=== PATIENT | female | born 1985 | race Caucasian/White ===

== ENCOUNTER 2018-09-14 16:35 | Outpatient (CLI) | payer MEDICAID ==
--- NOTE | 2018-09-14 18:04 | Non Stress Test Report ---
Non Stress Test Datetime Report Generated by CPN: 09/14/2018 18:04 DEMOGRAPHIC EGA NST: 37.6 INDICATION Indication for Study: Ordered by Provider; Other Indication for Study (NST) Other: AMA VITAL SIGNS RESP - NST: 18 MONITORING Monitor Explained: Monitor Explained; Test Explained; Patient Verbalized Understanding Time on Monitor: 09/14/2018 16:48 Time off Monitor: 09/14/2018 17:30 NST Duration: 42 NST INTERVENTIONS NST Interventions: PO Hydration; Reposition Patient Physician Notified NST: P JOMES CNM REVIEWED STRIP BABY A: [id number] BABY A Movement : Present Contraction Frequency : IRREG FHR Baseline : 130 Accelerations : 15X15 Decelerations : None Variability : Moderate 6-25bpm NST Review: Meets Criteria for Reactive NST NST Review and Verified By : BURTON Ritchie NST Results: Reactive NST REPORT Report Trigger: Send Report
== END 2018-09-14 17:35 | disposition home or self-care (01) ==
LOC: LC 16:35
PROVIDERS: ATTEND Student in an Organized Health Care Education/Training Program
PROC: 4A1HXCZ Monitoring of Products of Conception, Cardiac Rate, External Approach (ICD-10-PCS; principal; 2018-09-14)
DX: O47.1 False labor at or after 37 completed weeks of gestation (principal); O09.523 Supervision of elderly multigravida, third trimester; Z3A.37 37 weeks gestation of pregnancy
CPT/HCPCS: 59025

== ENCOUNTER 2018-09-22 04:50 | Inpatient (IN) | payer MEDICAID ==
[2018-09-21 11:11] LABS: ABSOLUTE EOSINOPHILS # (AUTO) 0.1 10^3/uL (0.0-0.6); ABSOLUTE LYMPHOCYTES (AUTO) 2.4 10^3/uL (0.5-4.7); ABSOLUTE MONOCYTES (AUTO) 0.7 10^3/uL (0.1-1.4); ABSOLUTE NEUT (AUTO) 7.5 10^3/uL (1.7-8.2); BASOPHILS % (AUTO) 0.2 % (0-2); EOSINOPHILS % (AUTO) 0.9 % (0-6); HEMATOCRIT 30.6 % (36.0-47.0); HEMOGLOBIN 10.6 g/dL (12.0-15.5); LYMPHOCYTES % (AUTO) 22.5 % (13-45); MEAN CORPUSCULAR HEMOGLOBIN 31.9 pg (27.0-33.4); MEAN CORPUSCULAR HGB CONC 34.6 g/dL (32.0-36.0); MEAN CORPUSCULAR VOLUME 92 fl (80-97); MONOCYTES % (AUTO) 6.6 % (3-13); PLATELET COUNT 244 10^3/uL (150-450); RED BLOOD COUNT 3.31 10^6/uL (3.72-5.28); RED CELL DISTRIBUTION WIDTH 13.6 % (11.5-14.0); SEGMENTED NEUTROPHILS % (AUTO) 69.8 % (42-78); TOTAL CELLS COUNTED % (AUTO) 100 %; WHITE BLOOD COUNT 10.7 10^3/uL (4.0-10.5)
[2018-09-21 11:21] LABS: APPEARANCE,URINE CLEAR; BILIRUBIN,URINE NEGATIVE (NEGATIVE); COLOR,URINE YELLOW; GLUCOSE, URINE NEGATIVE (NEGATIVE); KETONES,URINE NEGATIVE (NEGATIVE); LEUKOCYTE ESTERASE,URINE NEGATIVE (NEGATIVE); NITRITE,URINE NEGATIVE (NEGATIVE); PROTEIN,URINE NEGATIVE (NEGATIVE); URINE SPECIFIC GRAVITY 1.009; UROBILINOGEN,URINE NEGATIVE mg/dL (<2.0)
[2018-09-21 12:01] LABS: URINE AMPHETAMINES SCREEN NEGATIVE; URINE BARBITURATES SCREEN NEGATIVE; URINE BENZODIAZEPINES SCREEN NEGATIVE; URINE COCAINE SCREEN NEGATIVE; URINE MARIJUANA (THC) SCREEN NEGATIVE; URINE METHADONE SCREEN NEGATIVE; URINE PHENCYCLIDINE SCREEN NEGATIVE
[2018-09-22] MEDS ORDERED: RINGERS SOLUTION,LACTATED 1,000 ML IV PRN ×2 (05:00→09:00)
[2018-09-22] MEDS ORDERED: LACTATED RINGERS 1000 ML IV PRN (05:00)
[2018-09-22] MEDS ORDERED: CEFAZOLIN SODIUM 2 GM in DEXTROSE 5%-WATER 100 ML IV PRN (05:00)
[2018-09-22] MEDS ORDERED: LIDOCAINE 0.5% INJ-PF (5 MG/ML) 50 ML SDV SUBCUT PRN (05:00)
[2018-09-22] MEDS ORDERED: MIDAZOLAM 2 MG/2 ML INJ ONE (07:18)
[2018-09-22] MEDS ORDERED: OXYTOCIN 10 UNIT/ML VIAL ONE (07:18)
[2018-09-22] MEDS ORDERED: FENTANYL CITRATE INJ/PF 100 MCG/2 ML AMPUL ONE ×2 (07:18→10:32)
[2018-09-22] MEDS ORDERED: PROPOFOL INJ 200 MG/20 ML VIAL IV ONE (07:18)
[2018-09-22] MEDS ORDERED: CITRIC ACID/SODIUM CITRATE ORAL SOLN 15 ML UDCUP ONE (07:18)
[2018-09-22] MEDS ORDERED: EPHEDRINE SULFATE INJ 50 MG/1 ML AMPULE ONE (07:19)
[2018-09-22] MEDS ORDERED: OXYTOCIN/NORMAL SALINE 40 UNIT/2,000 ML RTUINJ ONE (07:19)
[2018-09-22] MEDS ORDERED: ONDANSETRON HCL INJ/PF 4 MG/2 ML SDV IV PRN (08:25)
[2018-09-22] MEDS ORDERED: DIPHENHYDRAMINE HCL 50 MG/ML VIAL IV PRN (08:25)
[2018-09-22] MEDS ORDERED: MEPERIDINE HCL/PF INJ 25 MG/1 ML DISP.SYRIN IV PRN (08:25)
[2018-09-22] MEDS ORDERED: PROMETHAZINE HCL INJ 25 MG/1 ML VIAL IV PRN ×3 (08:25→09:00)
[2018-09-22] MEDS ORDERED: FENTANYL CITRATE INJ/PF 100 MCG/2 ML AMPUL IV PRN ×3 (08:25)
[2018-09-22] MEDS ORDERED: HYDROMORPHONE HCL INJ/PF 2 MG/ML AMPULE IV PRN (08:26)
[2018-09-22] MEDS ORDERED: MEASLES,MUMPS&RUBELLA VACC/PF 0.5 ML VIAL SUBCUT PRN (09:00)
[2018-09-22] MEDS ORDERED: OXYCODONE-ACETAMINOPHEN 5-325 MG TABLET PO PRN (09:00)
[2018-09-22] MEDS ORDERED: ACETAMINOPHEN 325 MG TABLET PO PRN (09:00)
[2018-09-22] MEDS ORDERED: SIMETHICONE 80 MG TAB.CHEW PO PRN (09:00)
[2018-09-22] MEDS ORDERED: OXYTOCIN/NORMAL SALINE 20 UNIT/1,000 ML RTUINJ IV PRN (09:00)
[2018-09-22] MEDS ORDERED: DIPH/PERTUSS(ACELL)/TETANUS VAC/PF 0.5 ML SYR (>=10YO) IM PRN (09:00)
--- NOTE | 2018-09-22 09:05 | PDOC DELIVERY SUMMARY ---
Delivery Summary - Maternal Hx : Hx # Term Pregnancies: 3 Hx Total # of Abortions (Sponateous & Elective): 2 LAILA: 09/29/18 Gestational Age: 39 weeks Ruptured Membranes: AROM Time of Rupture: 08:12 Fluids: Clear - Delivery Presentation: Vertex Heart Rate Monitoring: Done Pre-Operatively Support Person Present: Yes Location: OR : Scheduled, Repeat Placenta: Within Normal Limits Delivery of Placenta Date: 09/22/18 Delivery of Placenta Time: 08:14 - Medications Type of Anesthesia:: Spinal - Assess and Care Baby 1 Female Delivery of Infant Date: 09/22/18 Delivery of Infant Time: 08:13 at 1 minute: 9 at 5 minutes: 9 Preprinted Number On Band: [id number] Skin to Skin: Yes Skin to Skin (Mins): 5 To Nursery At: 08:30 Mode of Transport: Bassinet Delivery Weight: 3,450 - Delivery Personnel Nursery RN: JAMISON PUENTE MD: JESUS CHACON
[2018-09-22] MEDS ORDERED: ACETAMINOPHEN 325 MG TABLET ONE (09:06)
--- NOTE | 2018-09-22 09:07 | Operative Report ---
Operative Report DATE OF SURGERY: 09/22/18 PREOPERATIVE DIAGNOSIS: Patient desires repeat and tubal ligation with Filshie clips POSTOPERATIVE DIAGNOSIS: Same OPERATION: Repeat via low transverse uterine incision and tubal ligation with Filshie clips SURGEON: JESUS CHACON ANESTHESIA: Spinal TISSUE REMOVED OR ALTERED: Placenta COMPLICATIONS: None ESTIMATED BLOOD LOSS: 400 cc INTRAOPERATIVE FINDINGS: Viable , normal uterus tubes and ovaries PROCEDURE: Patient was taken to the OR and placed in supine position after her spinal anesthesia. She is prepared and draped in sterile fashion. Krishnamurthy was placed for drainage of the bladder. Low transverse incision was made and carried down the level of the fascia. The fascial incision was made with knife and extended bilaterally with curved Ahumada scissors. The fascia was off the rectus muscles using sharp and blunt dissection. The rectus muscles are in the midline. The peritoneum was entered without incident. Bladder blade was placed in uterine segment was identified. A low transverse incision was made creating a bladder flap. Bladder blade was placed low transverse uterine incision was made with the knife and extended with fingertips. The baby was delivered with some fundal pressure. Mouth and nose were suctioned free. The cord is doubly clamped and cut. Baby is passed off to the facility engineer in attendance. The placenta was manually extracted with trailing membranes. The uterus was externalized wrapped in a moist lap sponge. Uterine contents wiped free. Uterus was closed with a running locking layer of 0 chromic suture using the second layer to imbricate the first completing a double layer closure of the uterus. The serosa was closed with a running 2-0 chromic stitch. Filshie clips were placed across the mid isthmic portion of each fallopian tube after anatomic identification. The pelvis was irrigated and suctioned free of fluid the uterus was replaced in the abdomen. The abdominal wall peritoneum was closed with running 2-0 chromic stitch. Fascia was closed with a running 0 Vicryl in 2 segments. Doug's layer was brought together with 0 plain gut stitch and the skin was closed with running subcuticular 4-0 undyed Vicryl stitch. The wound was dressed mother and baby did well.
[2018-09-22] MEDS ORDERED: OXYCODONE-ACETAMINOPHEN 5-325 MG TABLET ONE ×2 (10:24→10:25)
[2018-09-22] MEDS: OXYCODONE-ACETAMINOPHEN 5-325 MG TABLET PO PRN ×3 (10:25→19:07)
[2018-09-22] MEDS: PRENATAL VITAMIN W DHA CAPSULE PO SCH (11:34)
[2018-09-22] MEDS: DOCUSATE SODIUM 100 MG CAPSULE PO SCH ×2 (11:34→18:53)
[2018-09-22] MEDS: IBUPROFEN 800 MG TABLET PO SCH (11:42)
[2018-09-22] MEDS ORDERED: IBUPROFEN 800 MG TABLET PO SCH (12:00)
[2018-09-22] MEDS: KETOROLAC TROMETHAMINE INJ/PF 30 MG/1 ML SDV IV SCH ×2 (13:34→22:02)
[2018-09-22] MEDS ORDERED: KETOROLAC TROMETHAMINE 60 MG/2 ML SDV ONE (15:00)
[2018-09-22] MEDS ORDERED: PHENYLEPHRINE HCL INJ/PF 10 MG/1 ML SDV ONE (15:00)
[2018-09-22] MEDS ORDERED: ONDANSETRON HCL INJ/PF 4 MG/2 ML SDV ONE (15:00)
[2018-09-22] MEDS ORDERED: METOCLOPRAMIDE HCL INJ/PF 10 MG/2 ML SDV ONE (15:00)
[2018-09-23] MEDS: OXYCODONE-ACETAMINOPHEN 5-325 MG TABLET PO PRN ×5 (00:34→22:30)
[2018-09-23] MEDS ORDERED: IBUPROFEN 800 MG TABLET PO SCH (03:00)
[2018-09-23] MEDS: IBUPROFEN 800 MG TABLET PO SCH ×3 (05:18→18:09)
[2018-09-23 06:54] LABS: HEMATOCRIT 25.4 % (36.0-47.0); HEMOGLOBIN 8.7 g/dL (12.0-15.5); MEAN CORPUSCULAR HEMOGLOBIN 31.9 pg (27.0-33.4); MEAN CORPUSCULAR VOLUME 94 fl (80-97); PLATELET COUNT 181 10^3/uL (150-450); RED BLOOD COUNT 2.72 10^6/uL (3.72-5.28); RED CELL DISTRIBUTION WIDTH 13.8 % (11.5-14.0); WHITE BLOOD COUNT 11.4 10^3/uL (4.0-10.5)
[2018-09-23] MEDS: DOCUSATE SODIUM 100 MG CAPSULE PO SCH ×2 (09:54→18:08)
[2018-09-23] MEDS: PRENATAL VITAMIN W DHA CAPSULE PO SCH (09:54)
--- NOTE | 2018-09-23 10:47 | PDOC PROGRESS REPORT ---
Subjective-OB Progress Note for:: 09/23/18 - POD#1, s/p Rpt w/ BTL. doing well, no complaints, UOB, voiding, A+, rubella Immune, +tobacco use this Physical Exam (OB) Vital Signs: Temp Pulse Resp BP Pulse Ox 97.5 F 82 16 98/50 L 99 09/23/18 07:36 09/23/18 07:36 09/23/18 07:36 09/23/18 07:36 09/23/18 07:36 Intake & Output 09/22/18 09/23/18 09/24/18 06:59 06:59 06:59 Intake Total 3000 Output Total 1200 Balance 1800 Weight 76.566 kg - General General Appearance: Appears well, Alert In distress: None - PIH/Pre-Eclampsia Headache: Absent Epigastric Pain: No Visual Changes: No - Dressing Removed: No - opsite Incision: Dressing, Well Approximated Closure Type: Surgical Glue - Lochia Lochia Amount: Scant < 10 ml Lochia Color: Rubra/Red - Abdomen Description: Soft Hernia Present: No Fundal Description: Firm, Midline Fundal Height: u/u - u/2 - Respiratory Respiratory Status: No respiratory distress Breath sounds: Clear - Cardiovascular Heart Sounds: Normal auscultation - Abdominal Inspection: Normal Distension: No distension Tenderness: Nontender Abdominal Notes: +bowel sounds - Genitourinary Genitourinary Note: voiding - Extremities Upper extremity: Normal inspection Lower extremities: Normal inspection - Neurological Cognition: Normal Orientation: AAOx4 - Psychological Associated symptoms: Normal affect, Normal mood - Skin Skin Temperature: Warm Skin Moisture: Dry Objective-Diagnostic Laboratory: 09/23/18 06:46 09/23/18 06:46 WBC 11.4 H RBC 2.72 L Hgb 8.7 L Hct 25.4 L MCV 94 MCH 31.9 MCHC 34.0 RDW 13.8 Plt Count 181 Assessment and Plan(PN) - Assessment and Plan (1) Status post repeat low transverse section Is this a current diagnosis for this admission?: Yes (2) Tubal ligation status Is this a current diagnosis for this admission?: Yes - Time Spent with Patient Time with patient: Less than 15 minutes Medications reviewed and adjusted accordingly: Yes - Disposition Anticipated Discharge: Home Within: within 48 hours
[2018-09-23] MEDS ORDERED: MAG HYDROX/AL HYDROX/SIMETH SUSP 30 ML UDCUP ONE (12:26)
[2018-09-23] MEDS ORDERED: ONDANSETRON 4 MG TAB.RAPDIS PO PRN (13:12)
[2018-09-23] MEDS ORDERED: ONDANSETRON 4 MG TAB.RAPDIS ONE (13:13)
[2018-09-24] MEDS: IBUPROFEN 800 MG TABLET PO SCH ×3 (00:15→12:58)
[2018-09-24] MEDS: OXYCODONE-ACETAMINOPHEN 5-325 MG TABLET PO PRN ×2 (06:00→12:58)
--- NOTE | 2018-09-24 10:33 | PDOC DISCHARGE SUMMARY ---
Final Diagnosis Discharge Date: 09/24/18 - POD#2, doing well, no complaints, bottlefeeding, A+, Rubella Immune - Final Diagnosis (1) Status post repeat low transverse section Is this a current diagnosis for this admission?: Yes (2) Tubal ligation status Is this a current diagnosis for this admission?: Yes (3) Anemia, Is this a current diagnosis for this admission?: Yes (4) Normal course Is this a current diagnosis for this admission?: Yes Discharge Data - Discharge Medication Prescriptions: Ferrous Sulfate 325 mg PO DAILY #30 tablet. Ibuprofen [Motrin 800 mg Tablet] 800 mg PO Q6 #60 tablet Oxycodone HCl/Acetaminophen [Percocet 5-325 mg Tablet] 1 tab PO Q4HP PRN #30 tablet PRN Reason: Pain Scale Of 3 Home Medications: Vit,Calc76/Iron/Folic [Pnv 29-1 Tablet] 1 tab PO DAILY 09/21/18 Ranitidine HCl [Zantac] 1 tab PO DAILY 09/21/18 Ferrous Sulfate 325 mg PO DAILY #30 tablet. 09/24/18 Ibuprofen [Motrin 800 mg Tablet] 800 mg PO Q6 #60 tablet 09/24/18 Oxycodone HCl/Acetaminophen [Percocet 5-325 mg Tablet] 1 tab PO Q4HP PRN #30 tablet 09/24/18 Reason(s) for Admission: Ceasarean Section-Repeat, Tubal Ligation Procedures: NST, Ultrasound Intrapartum Procedure(s): : Low Cervical, Transverse, Tubal Ligation - Diagnosis Test Laboratory: Temp Pulse Resp BP Pulse Ox 98.4 F 86 18 108/51 L 97 09/24/18 03:45 09/24/18 03:45 09/24/18 03:45 09/24/18 03:45 09/24/18 03:45 09/21/18 09/21/18 09/23/18 09:55 09:55 06:46 RBC 3.31 L 2.72 L Hgb 10.6 L 8.7 L Hct 30.6 L 25.4 L Urine Opiates Screen NEGATIVE - Discharge information/Instructions Discharge Activity: Activity As Tolerated, No Driving, No Lifting Over 10 Pounds, Pelvic Rest Discharge Diet: As Tolerated, Regular Disposition: HOME, SELF-CARE Follow up with: [facility] in: 1, Weeks - for incision check
[2018-09-24] MEDS: PRENATAL VITAMIN W DHA CAPSULE PO SCH (10:47)
[2018-09-24] MEDS: DOCUSATE SODIUM 100 MG CAPSULE PO SCH (10:47)
[2018-09-24 12:00] VITALS: BP 105/63
== END 2018-09-24 15:00 | disposition home or self-care (01) | DRG 785 ==
LOC: 2S 04:50
PROVIDERS: ADMIT Obstetrics & Gynecology; ATTEND Obstetrics & Gynecology
PROC: 0UL70CZ Occlusion of Bilateral Fallopian Tubes with Extraluminal Device, Open Approach (ICD-10-PCS; 2018-09-22)
PROC: 10D00Z1 Extraction of Products of Conception, Low, Open Approach (ICD-10-PCS; principal; 2018-09-22 07:45)
DX: O34.211 Maternal care for low transverse scar from previous cesarean delivery (principal); N85.8 Other specified noninflammatory disorders of uterus; Z3A.39 39 weeks gestation of pregnancy; O90.81 Anemia of the puerperium; D64.9 Anemia, unspecified; O99.334 Smoking (tobacco) complicating childbirth; F17.210 Nicotine dependence, cigarettes, uncomplicated; Z37.0 Single live birth; Z30.2 Encounter for sterilization
CPT/HCPCS: 1961; 36415; 59025; 80307; 81001; 85025; 85027; 86850; 86900; 86901; 94760; 94799; J0690; J1170; J1885; J2250; J2370; J2405; J2590; J2704; J2765; J3010; J3490; J7060; J7120; S0119